=== PATIENT | female | born 1990 | race Caucasian/White ===

== ENCOUNTER 2022-06-25 15:06 | Emergency (ER) | payer MEDICAID ==
[~2022-06-25] VITALS: Ht 167.6 cm; Wt 64.0 kg
[2022-06-25 15:22] VITALS: BP 135/75
--- NOTE | 2022-06-25 15:35 | NUR ---
LORRAINE HYDE AT TRIAGE FOR EVAL
--- NOTE | 2022-06-25 15:37 | NUR ---
C/O COUGH AND SORE THROAT X2 WEEKS, CHILDREN ARE SICK WITH STREP NKA PMH: DENIES
[2022-06-25] MEDS ORDERED: IBUP-2213 PO (15:40)
[2022-06-25] MEDS ORDERED: AMOX500C25 PO (15:40)
--- NOTE | 2022-06-25 15:45 | NUR ---
Patient discharged with v/s stable. Written and verbal after care instructions about sore throat given and explained. Patient alert, oriented and verbalized understanding of instructions. Ambulatory with steady gait. All questions addressed prior to discharge. ID band removed. Patient advised to follow up with PMD. Rx of amoxicillin, motrin given. Patient educated on indication of medication including possible reaction and side effects. Opportunity to ask questions provided and answered.
== END 2022-06-25 15:45 | disposition home or self-care (01) ==
LOC: MED 15:06
DX: J02.9 Acute pharyngitis, unspecified (principal); R51.9 Headache, unspecified; M79.18 Myalgia, other site; Z79.1 Long term (current) use of non-steroidal anti-inflammatories (NSAID); Z79.2 Long term (current) use of antibiotics
CPT/HCPCS: 87081; 99283

== ENCOUNTER 2022-08-09 09:47 | Emergency (ER) | payer MEDICAID ==
[~2022-08-09] VITALS: Ht 167.6 cm; Wt 63.5 kg
[~2022-08-09 09:47] MED LIST: AMOX500C25 PO; IBUP-2213 PO
[2022-08-09 09:52] VITALS: BP 117/77
--- NOTE | 2022-08-09 10:16 | NUR ---
32/F PRESENTS TO ED WITH C/O COUGH, SORE THROAT AND BODY ACHES X3 DAYS. PATIENT REPORTS SHE HAS BEEN TAKING MOTRIN WITH SOME RELIEF. STATES SHE WAS EXPOSED TO FAMILY WHO HAD COVID ON THANKSGIVING. PATIENT DENIES SOB, FEVERS, CP.
--- NOTE | 2022-08-09 10:22 | NUR ---
Patient discharged with v/s stable. Written and verbal after care instructions given and explained for Viral Illness Patient verbalized understanding. Ambulatory with steady gait. All questions addressed prior to discharge. Advised to follow up with PMD. School note handed to patient.
== END 2022-08-09 10:22 | disposition home or self-care (01) ==
LOC: MED 09:47
DX: B34.9 Viral infection, unspecified (principal); Z20.822 Contact with and (suspected) exposure to COVID-19; Z79.899 Other long term (current) drug therapy; Z98.890 Other specified postprocedural states
CPT/HCPCS: 99283

== ENCOUNTER 2023-01-12 11:49 | Emergency (ER) | payer MEDICAID ==
[~2023-01-12] VITALS: Ht 162.6 cm; Wt 55.8 kg
[2023-01-12 12:06] VITALS: BP 106/60
[2023-01-12 12:09] VITALS: BP 133/80
--- NOTE | 2023-01-12 12:09 | NUR ---
Patient ambulated to bed 5.
[2023-01-12] MEDS ORDERED: BENZ-300 PO (12:15)
--- NOTE | 2023-01-12 12:40 | NUR ---
32 y/o female bib self with c/o sore throat, subjective fever, headache and productive cough x 4 days. Per patient, her sister and son are both sick. Patient reports taking Ibuprofen, Dayquil and cough drops. Medical History: Denies NKDA
[2023-01-12 13:28] VITALS: BP 114/79
--- NOTE | 2023-01-12 13:28 | NUR ---
Patient discharged with v/s stable. Written and verbal after care instructions given. Patient alert, oriented and verbalized understanding of instructions. Ambulatory with steady gait. All questions addressed prior to discharge. ID band removed. Patient advised to follow up with PMD. Rx of Cepacol Sore Throat Lozenges given. Opportunity to ask questions provided and answered. WORK NOTE HANDED TO PATIENT.
== END 2023-01-12 13:28 | disposition home or self-care (01) ==
LOC: MED 11:49
DX: J02.9 Acute pharyngitis, unspecified (principal); R03.0 Elevated blood-pressure reading, without diagnosis of hypertension; Z20.822 Contact with and (suspected) exposure to COVID-19; Z79.899 Other long term (current) drug therapy; Z79.2 Long term (current) use of antibiotics; Z79.1 Long term (current) use of non-steroidal anti-inflammatories (NSAID)
CPT/HCPCS: 87081; 99283